=== PATIENT | female | born 1975 | race Caucasian/White ===

== ENCOUNTER 2018-06-11 06:41 | Day surgery (SDC) | payer OTHER ==
[2018-06-10 11:03] VITALS: BMI 31.4
[2018-06-11 07:00] VITALS: O2SAT 100
--- NOTE | 2018-06-11 08:21 | CP.SDSHP ---
Same Day Surgery H & P - History Proposed Procedure: EGD Pre-Op Diagnosis: SEE NOTES - Previous Medical/Surgical History Misc: Other Pain: 4.Moderate Pain - Allergies Allergies: Allergies No Known Allergies Allergy (Verified 06/10/18 11:03) - Physical Exam General Appearance: N Vital Signs: Vital Signs 06/11/18 06:55 Temperature 97.2 F L Pulse Rate 72 Respiratory 19 Rate Blood Pressure 140/72 O2 Sat by Pulse 100 Oximetry Mental Status: Alert & Oriented x3 Neuro: WNL Heart: WNL Lungs: WNL GI: Other - {Optional Preform as Required} Breast: WNL Abdomen: Other Rectal: Other Integument: WNL : WNL Ortho: Other ENT: WNL - Impression Pt. Evaluated Today:Candidate for Anesthesia & Procedure: Yes - Date & Time Time: 08:21 Short Stay Discharge - Short Stay Discharge Admitting Diagnosis/Reason for Visit: DYSPEPSIA Disposition: HOME/ ROUTINE
[2018-06-11] MEDS ORDERED: Propofol 10 mg/ml Inj (20 ML) ONE (08:25)
[2018-06-11] MEDS ORDERED: Belladonna-Phenobarbital PO STA (09:42)
[2018-06-11 10:54] VITALS: TEMP 97.8
[2018-06-11 11:07] VITALS: BP 107/74; PULSE 59; RESP 12
== END 2018-06-11 09:55 | disposition home or self-care (01) ==
LOC: C.ENDO 06:41
PROVIDERS: ATTEND Specialist
DX: K29.70 Gastritis, unspecified, without bleeding (principal); K29.80 Duodenitis without bleeding; K44.9 Diaphragmatic hernia without obstruction or gangrene
CPT/HCPCS: 43239; 84703; 88305; 88342; J2001; J2704

== ENCOUNTER 2018-07-23 06:57 | Day surgery (SDC) | payer OTHER ==
[2018-06-10 11:03] VITALS: BMI 31.4
--- NOTE | 2018-07-23 08:29 | CP.SDSHP ---
Same Day Surgery H & P - History Proposed Procedure: COLONSCOPY Pre-Op Diagnosis: SEE NOTES - Previous Medical/Surgical History Misc: Other Pain: 4.Moderate Pain - Allergies Allergies: Allergies No Known Allergies Allergy (Verified 07/23/18 07:15) - Physical Exam General Appearance: N Vital Signs: Vital Signs 07/23/18 07:15 Temperature 97.5 F L Pulse Rate 79 Respiratory 19 Rate Blood Pressure 127/64 O2 Sat by Pulse 100 Oximetry Mental Status: Alert & Oriented x3 Neuro: WNL Heart: WNL Lungs: WNL GI: Other - {Optional Preform as Required} Breast: WNL Abdomen: Other Rectal: Other Integument: WNL : WNL Ortho: WNL ENT: WNL - Impression Pt. Evaluated Today:Candidate for Anesthesia & Procedure: Yes - Date & Time Time: 08:29 Short Stay Discharge - Short Stay Discharge Admitting Diagnosis/Reason for Visit: RECTAL BLEEDING Disposition: HOME/ ROUTINE
[2018-07-23] MEDS ORDERED: Lactated Ringer's 1,000 ML IV ONE (08:35)
[2018-07-23] MEDS ORDERED: Propofol 10 mg/ml Inj (20 ML) ONE ×2 (08:35→08:36)
[2018-07-23] MEDS ORDERED: Midazolam 2 MG/2 ML VIAL ONE (08:42)
[2018-07-23] MEDS ORDERED: Belladonna-Phenobarbital PO STA (09:04)
[2018-07-23 09:11] VITALS: TEMP 97.8
[2018-07-23 09:59] VITALS: RESP 13
[2018-07-23 10:12] VITALS: BP 103/60; PULSE 70; O2SAT 100
== END 2018-07-23 10:09 | disposition home or self-care (01) ==
LOC: C.ENDO 06:57
PROVIDERS: ATTEND Specialist
DX: K62.5 Hemorrhage of anus and rectum (principal); K64.8 Other hemorrhoids
CPT/HCPCS: 45378; 84703; 88305; J2250; J2704; J7120